=== PATIENT | male | born 1970 | race Caucasian/White ===

== ENCOUNTER 2017-08-03 20:21 | Emergency (ER) | payer OTHER ==
[~2017-08-03] VITALS: Ht 175.3 cm; Wt 86.9 kg
[~2017-08-03 20:21] MED LIST: BACTRIM,SEPT1 TABLET PO; MOTRIN800 MG PO; PERCOCET 5/31 TABLET PO
[2017-08-03 20:48] LABS: HEMATOCRIT 43.3 % (38.0-50.0); MCH 28.3 PG (29.0-34.0); MCHC 34.2 G/DL (30.0-36.0); MCV 82.8 FL (86-99); MEAN PLAT.VOLUME 9.7 uM^3 (9.0-12.4); PLATELET COUNT 279 K/uL (156-360); RBC DIS.WIDTH-CV 12.2 % (11.8-14.6); RBC DIS.WIDTH-SD 36.5 % (39-53); RED BLOOD COUNT 5.23 M/uL (4.00-5.50); WHITE BLOOD COUNT 10.9 K/uL (4.1-10.2)
[2017-08-03 20:48] LABS: ADD MIUA? YES; BILIRUBIN NEGATIVE; BLOOD NEGATIVE; COLOR YELLOW ((YELLOW)); GLUCOSE (STRIP) >=500; KETONES NEGATIVE; LEUKOCYTES TRACE; NITRITE NEGATIVE; PROTEIN (STRIP) NEGATIVE; SPECIFIC GRAVITY 1.014 (1.000-1.030); UROBILINOGEN 0.2 MG/DL (0.2-1.0)
[2017-08-03 20:50] LABS: BACTERIA NONE SEEN /HPF; EPITHELIAL CELLS NONE SEEN /HPF; MUCUS NONE SEEN /LPF; RED BLOOD CELLS 0-5 /HPF (0-5); UCUL ADDED? NO; WHITE BLOOD CELLS 0-5 /HPF (0-5)
[2017-08-03 20:58] LABS: CHLORIDE 102 mEq/L (99-109); POTASSIUM 3.6 mEq/L (3.7-5.4); SODIUM 140 mEq/L (136-147)
[2017-08-03 21:00] LABS: GLUCOSE 315 mg/dL (70-99)
[2017-08-03 21:01] LABS: ANION GAP 13 MEQ/L (2-14)
[2017-08-03 21:02] LABS: TOTAL BILIRUBIN 0.5 mg/dL (0.0-1.0)
[2017-08-03 21:03] LABS: ALKALINE PHOSPHATASE 84 IU/L (3-129)
[2017-08-03 21:04] LABS: GFR ESTIMATE (CALCULATED) > 59 mL/min/
[2017-08-03 21:05] LABS: UREA NITROGEN (BUN) 4 mg/dL (9-23)
[2017-08-03] MEDS ORDERED: FLAGYL500 MG PO (23:00)
[2017-08-03] MEDS ORDERED: CIPRO500 MG PO (23:00)
[2017-08-03 23:14] VITALS: BP 128/80
== END 2017-08-03 23:17 | disposition home or self-care (01) ==
LOC: EME 20:21
DX: K57.32 Diverticulitis of large intestine without perforation or abscess without bleeding (principal); I10 Essential (primary) hypertension; E11.9 Type 2 diabetes mellitus without complications; Z79.84 Long term (current) use of oral hypoglycemic drugs
CPT/HCPCS: 74176; 80053; 81003; 85027; 99281; 99284

== ENCOUNTER 2017-08-24 06:53 | Inpatient (IN) | payer OTHER ==
[~2017-08-24] VITALS: Ht 175.3 cm; Wt 82.0 kg
[~2017-08-24 06:53] MED LIST changes: +CIPRO500 MG PO; +FLAGYL500 MG PO
[2017-08-24] MEDS ORDERED: ZITHROMAX Z-PA250 MG PO (07:40)
[2017-08-24] MEDS ORDERED: PREDNISONE20 MG PO (07:40)
[2017-08-24 07:51] LABS: HEMATOCRIT 43.1 % (38.0-50.0); MCH 28.4 PG (29.0-34.0); MCV 81.2 FL (86-99); MEAN PLAT.VOLUME 9.4 uM^3 (9.0-12.4); PLATELET COUNT 279 K/uL (156-360); RBC DIS.WIDTH-CV 12.1 % (11.8-14.6); RBC DIS.WIDTH-SD 35.4 % (39-53); RED BLOOD COUNT 5.31 M/uL (4.00-5.50); WHITE BLOOD COUNT 11.6 K/uL (4.1-10.2)
[2017-08-24 08:02] LABS: CHLORIDE 106 mEq/L (99-109); POTASSIUM 3.4 mEq/L (3.7-5.4); SODIUM 139 mEq/L (136-147)
[2017-08-24 08:04] LABS: GLUCOSE 196 mg/dL (70-99)
[2017-08-24 08:06] LABS: ANION GAP 14 MEQ/L (2-14); TOTAL BILIRUBIN 0.6 mg/dL (0.0-1.0)
[2017-08-24 08:08] LABS: ALKALINE PHOSPHATASE 60 IU/L (3-129); GFR ESTIMATE (CALCULATED) > 59 mL/min/
[2017-08-24 08:09] LABS: UREA NITROGEN (BUN) 13 mg/dL (9-23)
[2017-08-24 08:11] LABS: LIPASE 44 U/L (1.0-51.0)
[2017-08-24 10:46] LABS: C DIFF TOXIN NEGATIVE (NEGATIVE)
[2017-08-24] MEDS ORDERED: METFORMIN HCL1000 MG PO (11:07)
[2017-08-24] MEDS ORDERED: GABAPENTIN300 MG PO (11:07)
[2017-08-24] MEDS ORDERED: JANUVIA100 MG PO (11:07)
[2017-08-24 11:08] LABS: PROBE CHECK PASS; SPECIMEN PROCESSING CONTROL PASS
[2017-08-24] MEDS ORDERED: LISINOPRIL10 MG PO (11:08)
[2017-08-24] MEDS ORDERED: ROSUVASTATIN CA40 MG PO (11:08)
[2017-08-24 11:45] VITALS: BP 138/80
[2017-08-24 16:00] VITALS: BP 128/85
[2017-08-24 19:54] LABS: ADD MIUA? NO; BILIRUBIN NEGATIVE; BLOOD NEGATIVE; COLOR STRAW ((YELLOW)); GLUCOSE (STRIP) NEGATIVE; KETONES NEGATIVE; LEUKOCYTES NEGATIVE; NITRITE NEGATIVE; PROTEIN (STRIP) NEGATIVE; SPECIFIC GRAVITY 1.014 (1.000-1.030); UCUL ADDED? NO; UROBILINOGEN 0.2 MG/DL (0.2-1.0)
[2017-08-24 23:54] VITALS: BP 133/85
[2017-08-25 07:09] LABS: EOSINOPHIL (%) 0.6 % (0-5); EOSINOPHIL COUNT 0.1 K/uL (0-0.3); HEMATOCRIT 41.9 % (38.0-50.0); IMMATURE GRANULOCYTE (%) 0.3 % (0.0-0.7); INSTRUMENT ABS NEUTROPHIL CT 9.3 K/uL; LYMPHOCYTE COUNT 2.2 K/uL (1.0-2.8); MCH 29.4 PG (29.0-34.0); MCHC 35.3 G/DL (30.0-36.0); MCV 83.1 FL (86-99); MONOCYTE (%) 6.4 % (3-12); MONOCYTE COUNT 0.8 K/uL (0-0.8); NEUTROPHIL (%) 74.7 % (45-76); NEUTROPHIL COUNT 9.3 K/uL (1.8-6.4); PLATELET COUNT 270 K/uL (156-360); RBC DIS.WIDTH-CV 12.6 % (11.8-14.6); RBC DIS.WIDTH-SD 37.6 % (39-53); RED BLOOD COUNT 5.04 M/uL (4.00-5.50); WHITE BLOOD COUNT 12.4 K/uL (4.1-10.2)
[2017-08-25 07:30] LABS: ANION GAP 12 MEQ/L (2-14); CHLORIDE 111 MEQ/L (99-109); GFR ESTIMATE (CALCULATED) > 59 mL/min/; GLUCOSE 147 mg/dL (70-99); POTASSIUM 3.5 MEQ/L (3.7-5.4); SAMPLE HEMOLYSIS CHECK 0; SAMPLE ICTERIC CHECK 0; SAMPLE LIPEMIA CHECK 0; SODIUM 144 MEQ/L (136-147); UREA NITROGEN (BUN) 7 mg/dL (9-23)
[2017-08-25 07:38] VITALS: BP 139/84
[2017-08-25 15:59] VITALS: BP 128/77
[2017-08-26 07:29] VITALS: BP 125/81
[2017-08-26 09:38] LABS: HEMATOCRIT 37.9 % (38.0-50.0); MCH 29.3 PG (29.0-34.0); MCHC 34.8 G/DL (30.0-36.0); MCV 84.2 FL (86-99); MEAN PLAT.VOLUME 9.7 uM^3 (9.0-12.4); PLATELET COUNT 230 K/uL (156-360); RBC DIS.WIDTH-CV 12.6 % (11.8-14.6); RBC DIS.WIDTH-SD 38.1 % (39-53); WHITE BLOOD COUNT 9.8 K/uL (4.1-10.2)
[2017-08-26 10:00] LABS: ANION GAP 8 MEQ/L (2-14); CHLORIDE 113 MEQ/L (99-109); GFR ESTIMATE (CALCULATED) > 59 mL/min/; GLUCOSE 127 mg/dL (70-99); POTASSIUM 3.1 MEQ/L (3.7-5.4); SAMPLE HEMOLYSIS CHECK 0; SAMPLE ICTERIC CHECK 0; SAMPLE LIPEMIA CHECK 0; SODIUM 145 MEQ/L (136-147); UREA NITROGEN (BUN) 4 mg/dL (9-23)
[2017-08-26 11:45] LABS: MCV 84.4 FL (86-99)
[2017-08-26 15:15] LABS: MAGNESIUM 1.6 mg/dl (1.3-2.7)
[2017-08-26 16:06] VITALS: BP 170/80
[2017-08-26 21:50] LABS: POINT-OF-CARE METER ID UU14188625
[2017-08-27] VITALS: BP 128/80
[2017-08-27 06:43] LABS: ANION GAP 12 MEQ/L (2-14); CHLORIDE 110 MEQ/L (99-109); GFR ESTIMATE (CALCULATED) > 59 mL/min/; GLUCOSE 122 mg/dL (70-99); POTASSIUM 3.1 MEQ/L (3.7-5.4); SAMPLE HEMOLYSIS CHECK 0; SAMPLE ICTERIC CHECK 0; SAMPLE LIPEMIA CHECK 0; SODIUM 145 MEQ/L (136-147); UREA NITROGEN (BUN) 3 mg/dL (9-23)
[2017-08-27 07:17] VITALS: BP 142/85
[2017-08-27] MEDS ORDERED: CIPRO500 MG PO (12:05)
[2017-08-27] MEDS ORDERED: FLAGYL500 MG PO (12:05)
[2017-08-27 15:18] VITALS: BP 119/83
== END 2017-08-27 16:15 | disposition home or self-care (01) | DRG 392 ==
LOC: EME 06:53 → EDOF 10:23 → 5SOUTH 10:23 → ENRESERV 10:25 → EDOF 10:52 → 5SOUTH 11:21
PROVIDERS: Emergency Medicine; Hospitalist; Physician Assistant
DX: A09 Infectious gastroenteritis and colitis, unspecified (principal); K52.9 Noninfective gastroenteritis and colitis, unspecified; K57.92 Diverticulitis of intestine, part unspecified, without perforation or abscess without bleeding; E87.6 Hypokalemia; I10 Essential (primary) hypertension; E78.5 Hyperlipidemia, unspecified; E11.9 Type 2 diabetes mellitus without complications; Z79.84 Long term (current) use of oral hypoglycemic drugs; Z83.3 Family history of diabetes mellitus
CPT/HCPCS: 74177; 80048; 80053; 81003; 82948; 83690; 83735; 85014; 85018; 85025; 85027; 87177; 87329; 87493; 87506; 93005; 99281; 99284; J0744; J1815; J2405; J2765; J7030; S0030

== ENCOUNTER 2017-12-15 06:46 | Emergency (ER) | payer OTHER ==
[~2017-12-15] VITALS: Ht 172.7 cm; Wt 84.4 kg
[~2017-12-15 06:46] MED LIST changes: +GABAPENTIN300 MG PO; +JANUVIA100 MG PO; +LISINOPRIL10 MG PO; +METFORMIN HCL1000 MG PO; +PREDNISONE20 MG PO; +ROSUVASTATIN CA40 MG PO; +ZITHROMAX Z-PA250 MG PO
[2017-12-15] MEDS ORDERED: FLEXERIL10 MG PO (08:16)
[2017-12-15] MEDS ORDERED: PERCOCET 5/31 TABLET PO (08:16)
[2017-12-15 08:28] VITALS: BP 155/98
== END 2017-12-15 08:32 | disposition home or self-care (01) ==
LOC: EME 06:46
DX: S39.012A Strain of muscle, fascia and tendon of lower back, initial encounter (principal); E11.9 Type 2 diabetes mellitus without complications; Z79.4 Long term (current) use of insulin; I10 Essential (primary) hypertension; G89.29 Other chronic pain; Z79.84 Long term (current) use of oral hypoglycemic drugs
CPT/HCPCS: 72100; 99281; 99283; J1885